=== PATIENT | female | born 1985 | race Caucasian/White ===

== ENCOUNTER → 2018-02-13 14:42 | Outpatient (CLI) | payer MEDICAID, SELFPAY | PROVIDERS: Visit Provider Obstetrics & Gynecology | DX: Z12.4 Encounter for screening for malignant neoplasm of cervix (principal) | CPT/HCPCS: 87624; 88175; G0145 ==

== ENCOUNTER → 2018-04-11 13:56 | Outpatient (CLI) | payer MEDICAID, SELFPAY ==
[2016-03-15 10:26] VITALS: BMI 33.5
[2018-04-11 18:11] LABS: Chlamydia Trachomatis by PCR Negative (Negative); Neisserai gonorrhoeae by PCR Negative (Negative); Probe Check PASS; Sample Adequacy Control PASS; Specimen Processing Control PASS
== END ==
PROVIDERS: Visit Provider Obstetrics & Gynecology
DX: Z11.3 Encounter for screening for infections with a predominantly sexual mode of transmission (principal); Z32.01 Encounter for pregnancy test, result positive
CPT/HCPCS: 87491; 87591

== ENCOUNTER → 2018-04-24 15:54 | Outpatient (CLI) | payer MEDICAID, SELFPAY ==
[2018-04-24 17:51] LABS: Absolute Lymphocyte Count 1.89 X10^3/ul (0.83-4.51); Absolute Neutrophil Count 8.3 X10^3/uL (2.0-7.7); Basophil# 0.02 X10^3/uL; Basophil% 0.2 % (0-1); Eosinophil# 0.07 X10^3/uL; Eosinophils% 0.6 % (0-5); Hematocrit 39.1 % (37-47); Hemoglobin 13.3 g/dl (12.0-15.0); Lymphocyte # 1.89 X10^3/ul (4.0); Lymphocyte % 17.2 % (19-41); Mean Corpuscular Hgb 30.6 pg (27.0-32.0); Mean Corpuscular Volume 90.1 fL (81-99); Mean Platelet Vol. 12.1 fl (6.2-12.0); Monocyte# 0.69 X10^3/uL; Monocyte% 6.3 % (0-10); Neutrophil % 75.4 % (47-70); Platelet Count 299 K/mm3 (150-450); RBC Distribution Width CV 13.2 % (11.6-14.6); RBC Distribution Width SD 43.2 fl (35.1-43.9); Red Blood Count 4.34 M/mm3 (4.2-5.4)
[2018-04-24 17:53] LABS: POSITIVE COUNT NO; POSITIVE DIFFERENTIAL NO; POSITIVE MORPHOLOGY NO
[2018-04-24 17:59] LABS: Color, Urine Yellow (Yellow); Glucose, Dipstick Normal (Normal); Ketone-Dipstick Negative (Negative); Leukocyte Esterase-Dipstick Negative /ul (Negative); Nitrite-Dipstick Negative (Negative); Occult Blood-Urine 25 /ul (Negative); Protein-Dipstick Negative (Negative); Urine Bilirubin Dipstick Negative (Negative); Urine Clarity Clear (Clear); Urine Urobilinogen Normal (Normal)
[2018-04-24 18:10] LABS: Amphetamine Urine VISTA NEGATIVE (<1000 ng/mL); Barbiturate Urine VISTA NEGATIVE (< 200 ng/mL); Benzodiazepine Urine VISTA NEGATIVE (< 200 ng/mL); Cocaine Urine VISTA NEGATIVE (< 300 ng/mL); Ecstacy Urine VISTA NEGATIVE (< 500 ng/mL); Methadone Urine VISTA NEGATIVE (< 300 ng/mL); PCP Urine VISTA NEGATIVE (< 25 ng/mL); THC Urine VISTA NEGATIVE (< 50 ng/mL); Vista UDS pH Range 7
[2018-04-24 18:51] LABS: HIV - WCH Non-Reactive (Nonreactive); Rubella IgG 52.2 IU/mL; Vitamin D,25 Hydroxy 29.9 ng/mL (29.95-100.01)
[2018-04-24 19:04] LABS: COTININE Drug Screen Negative (<200 ng/mL)
[2018-04-26 13:24] LABS: HEPATITIS B SURFACE AG Negative (Negative); Hep C Antibodies <0.1 s/co ratio (0.0-0.9)
[2018-04-27 02:33] LABS: Prenatal RPR NONREACTIVE (NONREACTIVE)
== END ==
PROVIDERS: Visit Provider Obstetrics & Gynecology
DX: Z34.81 Encounter for supervision of other normal pregnancy, first trimester (principal)
CPT/HCPCS: 36415; 80307; 81002; 82306; 84443; 85025; 86703; 86762; 86803; 87340

== ENCOUNTER → 2018-09-10 11:25 | Outpatient (CLI) | payer MEDICAID, SELFPAY ==
[2018-09-10 13:47] LABS: Hematocrit 35.3 % (37-47); Hemoglobin 11.8 g/dl (12.0-15.0); Mean Corp Hgb Conc 33.4 g/gl (32-36); Mean Corpuscular Hgb 30.6 pg (27.0-32.0); Mean Corpuscular Volume 91.5 fL (81-99); Mean Platelet Vol. 10.9 fl (6.2-12.0); Platelet Count 209 K/mm3 (150-450); RBC Distribution Width CV 13.2 % (11.6-14.6); RBC Distribution Width SD 43.5 fl (35.1-43.9); Red Blood Count 3.86 M/mm3 (4.2-5.4); Scan Indicated on CBC? Y/N NO; White Blood Count 8.9 K/mm3 (4.4-11.0)
[2018-09-10 13:50] LABS: Glucose Challenge Gest 1H 50g 90 mg/dL (70-140)
== END ==
PROVIDERS: Visit Provider Obstetrics & Gynecology
DX: Z34.83 Encounter for supervision of other normal pregnancy, third trimester (principal)
CPT/HCPCS: 36415; 82950; 85027

== ENCOUNTER → 2018-10-03 11:54 | Outpatient (CLI) | payer MEDICAID, SELFPAY ==
[2016-03-15 10:26] VITALS: BMI 33.5
[2018-10-03 12:24] LABS: ROM Internal Control Test YES-OK TO RESULT pt. (Internal QC)
[2018-10-03 12:27] LABS: ROM Patient Test Negative (Negative)
== END ==
PROVIDERS: Visit Provider Obstetrics & Gynecology
DX: Z34.83 Encounter for supervision of other normal pregnancy, third trimester (principal)
CPT/HCPCS: 84112

== ENCOUNTER → 2018-10-23 16:16 | Outpatient (CLI) | payer MEDICAID, SELFPAY ==
[2016-03-15 10:26] VITALS: BMI 33.5
== END ==
PROVIDERS: Visit Provider Obstetrics & Gynecology
DX: Z36.85 Encounter for antenatal screening for Streptococcus B (principal)
CPT/HCPCS: 87077; 87081; 87186

== ENCOUNTER 2018-11-08 12:00 | Inpatient (IN) | payer MEDICAID, SELFPAY ==
[2016-03-15 10:26] VITALS: BMI 33.5
[2018-11-08] VITALS (12 sets, daily range): BP systolic 104–127; BP diastolic 59–80; PULSE 86–109; RESP 16; TEMP 36–36.6; O2SAT 97–100; BMI 30.7
--- NOTE | 2018-11-08 12:13 | PCM.OPRPT ---
Report of Operation Date of Procedure: 11/08/18 Pre-Operative Diagnosis: labor 36w5d ega with previous section, requests permanent sterilization Post-Operative Diagnosis: Same Surgery/Procedure Performed:: Repeat Low Transverse Section, Bilateral Salpingectomy Description of Surgical Findings:: Live male in vertex presentation. Apgars 8/9. Normal appearing uterus, ovaries, and fallopian tubes. Type of Anesthesia:: Spinal Special Medications: none Specimen's removed: none Drains: ogden Description of Procedure: Imani was found to be in labor at 36w5d EGA. Indications for repeat section discussed and risks, benefits, and possible postoperative expectations reviewed. She also reconfirms her desire for permanent sterilization. She was taken to the OR with IV running. She was then given two grams of Ancef for surgical prophylaxis. Spinal anesthesia was then induced without complication. She was then prepped and draped in the supine position with a leftward tilt. A ogden catheter was placed. Once anesthesia was deemed adequate a Pfannesteil skin incision was made with the scalpel and then the previous scar was removed. The underlying subcutaneous tissue was dissected down to the level of the fascia with sharp and blunt dissection. The fascia was then incised laterally in the midline. This defect was extended bilaterally with the Breen scissors. The upper portion of the fascial defect was then grasped with two Beverly clamps, elevated and the underlying rectus muscles were dissected off with sharp and blunt dissection. In a similar fashion the rectus muscles were dissected off the lower portion of the fascial defect. The rectus muscles were then in the midline, the peritoneum identified and entered sharply. The peritoneal defect was enlarged with blunt dissection. A bladder blade was placed and a bladder flap created. The bladder blade was replaced . A transverse incision was then made in the lower uterine segment and once the cavity was entered the defect was enlarged using blunt lateral and superior traction. The membranes were ruptured and the baby's head was delivered atraumatically followed by the body. The mouth was suctioned with a bulb suction. Delayed cord clamping was employed. The cord was then clamped and cut. The baby was then handed off to the waiting nurse for evaluation. The placenta was delivered manually, the uterus exteriorized, and cleared of all clot and membranes. The uterine defect was then repaired in two layers with #1 Vicryl suture. Attention was then directed to the fallopian tubes. The right fallopian tube was grasped with a Margarita clamp elevated and the mesosalpinx clamped with two Caitlin clamps. The mesosalpinx was then cut from the fimbriated end to the cornua of the uterus and then amputated and ligated at the cornua. The mesosalpinx was clamped and ligated. In a similar fashion the left fallopian tube was removed. The cul de sac and gutters were cleared of all clot and fluid. The uterus was returned to the abdomen. The uterine incision and fallopian tube pedicles were inspected and found to be hemostatic. The peritoneum was closed with a running stitch of 2-0 Vicryl. The rectus muscles were reapproximated with interrupted sutures of 0-Vicryl suture. The fascia was closed with a running stitch of #1 Vicryl. The subcutaneous tissue was closed with 2-0 Vicryl. The skin was close with a subcuticular stitch of 4-0 Monocryl. Instrument, needle, lap, and sponge counts were correct. She was taken to the recovery room in stable condition. Grafts/Implants Used: none - Complications none - Admit VTE Documentation VTE Present on Admission: No VTE Mechan Device Prophylaxis: SCD's VTE Pharm Prophylaxis ordered?: No Delivery Classification: JHONNY Final BRETT: 11/30/18 Final BRETT Source: US <20 weeks Gestational age: 36 Weeks and 6 Days Indications for : Repeat Elective , - - Previous section x 3 requests sterilization Description of Procedure: see op note Amniotic Membrane Rupture Type: Artificial Amniotic Fluid Description: Clear Placenta Disposition: [facility] Specimen(s) sent to pathology: none Drain: Ogden to straight drain Fluids Replaced: 1000cc LR Cord Entanglement: None Nuchal Cord Compression: Without compression Cord Vessel Description: 3 Vessels Esitmated Blood Loss (ml): 400cc Infant Gender: Male (1 minute): 8 (5 minute): 9 Delayed cord clamping: Yes Pre-op Antibiotic Given: Ancef 2 grams IV x1 Pt instructed on risks of surgery: Bleeding, Infection, Permanency Complications: None - Admit VTE Documentation VTE Present on Admission: No VTE Mechan Device Prophylaxis: SCD's VTE Pharm Prophylaxis ordered?: No
[2018-11-08] MEDS: Lactated Ringers 1,000 ML 50 ML IV ×2 (13:05→15:53)
[2018-11-08 13:33] LABS: Absolute Lymphocyte Count 1.36 X10^3/ul (0.83-4.51); Absolute Neutrophil Count 6.5 X10^3/uL (2.0-7.7); Basophil# 0.02 X10^3/uL; Basophil% 0.2 % (0-1); Eosinophils% 1.1 % (0-5); Hematocrit 36.2 % (37-47); Hemoglobin 12.3 g/dl (12.0-15.0); Lymphocyte # 1.36 X10^3/ul (4.0); Lymphocyte % 15.5 % (19-41); Mean Corpuscular Hgb 30.3 pg (27.0-32.0); Mean Corpuscular Volume 89.2 fL (81-99); Mean Platelet Vol. 11.3 fl (6.2-12.0); Monocyte# 0.74 X10^3/uL; Monocyte% 8.4 % (0-10); Neutrophil # 6.49 X10^3/uL (2.7-7.7); Neutrophil % 74.1 % (47-70); Platelet Count 203 K/mm3 (150-450); RBC Distribution Width CV 13.5 % (11.6-14.6); RBC Distribution Width SD 44.1 fl (35.1-43.9); Red Blood Count 4.06 M/mm3 (4.2-5.4); White Blood Count 8.8 K/mm3 (4.4-11.0)
[2018-11-08 13:36] LABS: POSITIVE COUNT NO; POSITIVE DIFFERENTIAL NO; POSITIVE MORPHOLOGY NO
[2018-11-08 13:48] LABS: International Normalized Ratio 1.1; Partial Thromboplast Time 28.5 Seconds (24.1-36.2); Prothrombin Time (Protime)PT. 13.6 SECONDS (11.7-14.9)
[2018-11-08] MEDS: CHLORHEXIDINE GLUC 2% CLOTH 1 EACH TOWELETTE TOPICAL (15:00)
[2018-11-08] MEDS: Sodium Citrate/Citric Acid 30 ML UDC PO (15:53)
[2018-11-08] MEDS: Cefazolin 2 GM in 0.9% Normal Saline 100 ML IV (15:56)
--- NOTE | 2018-11-08 16:31 | FALS_PTH ---
PATIENT: JACQUELINE MAJOR LOC: [facility] U#:[id number] AGE/SX: 33/F ROOM: WP004 RE11/08/[address]: Dr. Waldo Covarrubias MD : 1985 BED: 1 DIS: 11/10/2018 SPEC #: [id number] RECD: 11/08/18 19:01 STATUS: GLADYS REMichael #: [id number] STACY: 11/08/18 16:[address]: Waldo Covarrubias DEPT: SURGICAL PATHOLOGY RECD BY: Wesly Beth ENTERED: 11/09/18 08:02 SP TYPE: FALL TUBES OTHR DR: No Primary Care Phys Tissues: Fallopian tube Procedures: Surgery Specimen Level II HEADER OPERATION: Tubal ligation PRE-OP DIAGNOSIS: Desires sterilization TISSUE SUBMITTED: Fallopian tubes, suture in left MICROSCOPIC DIAGNOSIS Fallopian tubes: Bilateral fallopian tubes with intact lumen identified. FA:christie 11/12/18 MICROSCOPIC DESCRIPTION Slides are reviewed. GROSS DESCRIPTION Received in fixative is one container labeled with the patient's name and designated fallopian tubes, suture in left. The specimen consists of two segments of fallopian tubes, one with suture thread. The fallopian tube containing suture thread measures 5 cm in length x 0.6 cm in diameter. The serosal surface is carter-pink and smooth. A fimbriated end is present. Cross-sections through the fallopian tube demonstrate a pinpoint lumen. The contralateral fallopian tube measures 5.2 cm in length x 0.7 cm in diameter. The serosal surface is carter-pink and smooth. A fimbriated end is present. Cross-sectioning demonstrates a pinpoint lumen. [employer] sections are submitted as follows: 1 - left fallopian tube, 2 - right fallopian tube. / CE:christie 11/09/18 TC:4 [facility]: [id number] x2
[2018-11-08] MEDS: Oxytocin 30 units/NS 500 ml 30 UNITS/500 ML IV.SOLN 167 UNITS IV (16:33)
[2018-11-08] MEDS: Ketorolac 30 MG/ML Syringe IV ×2 (17:02→22:58)
[2018-11-08] MEDS: Nalbuphine 10 MG/ML Ampul 5 MG IV (18:36)
[2018-11-08] MEDS: Ondansetron 4 MG/2 ML Vial IV (22:53)
[2018-11-09] VITALS (13 sets, daily range): BP systolic 102–111; BP diastolic 52–76; PULSE 72–90; RESP 16–20; TEMP 36.2–36.6; O2SAT 97–100
[2018-11-09] MEDS: Lactated Ringers 1,000 ML 100 ML IV (00:37)
[2018-11-09] MEDS: Cefazolin 1 GM/50 ML BAG IV ×2 (00:38→09:12)
[2018-11-09] MEDS: Ondansetron 4 MG/2 ML Vial IV (02:57)
[2018-11-09] MEDS: Ketorolac 15 MG/ML Vial 30 MG IV ×4 (05:11→23:03)
[2018-11-09 05:40] LABS: Hematocrit 28.1 % (37-47); Hemoglobin 9.7 g/dl (12.0-15.0); Mean Corp Hgb Conc 34.5 g/gl (32-36); Mean Corpuscular Hgb 30.7 pg (27.0-32.0); Mean Corpuscular Volume 88.9 fL (81-99); Mean Platelet Vol. 10.9 fl (6.2-12.0); Platelet Count 186 K/mm3 (150-450); RBC Distribution Width CV 13.4 % (11.6-14.6); Red Blood Count 3.16 M/mm3 (4.2-5.4); White Blood Count 11.5 K/mm3 (4.4-11.0)
[2018-11-09 05:51] LABS: Scan Indicated on CBC? Y/N NO
--- NOTE | 2018-11-09 08:19 | PCM.PN.OB ---
Subjective: Pain reasonably controlled this morning. Breast feeding, tolerating PO, Bleeding light Objective: Afeb VSS Hgb appropriate - Physical Exam General: Alert, Oriented x3, Cooperative, No apparent distress Lungs: Clear to auscultation, Normal air movement Cardiovascular: Regular rate, Regular Rhythm Abdomen: Soft, Non-Distended, - - Fundus firm Incision dressing dry Extremities: No edema Skin: No rashes Neurological: Neuro grossly intact Psych/Mental Status: Normal Affect Comment: Lochia light Vital Signs Temp Pulse Resp BP Pulse Ox 97.3 F L 83 16 103/53 L 98 11/09/18 07:10 11/09/18 07:10 11/09/18 07:10 11/09/18 07:10 11/09/18 07:10 Oxygen Delivery Method Room Air Weight: 176 lb 2.389 oz Body Mass Index (BMI) 30.7 Intake and Output for Last 24 Hours 11/07/18 11/08/18 11/09/18 23:59 23:59 23:59 Intake Total 1786 / 1786 1043 / 1043 Output Total 400 / 400 700 / 700 Balance 1386 / 1386 343 / 343 Laboratory Tests Past 24 Hrs 11/08/18 11/08/18 11/08/18 13:05 13:05 13:05 WBC 8.8 RBC 4.06 L Hgb 12.3 Hct 36.2 L MCV 89.2 MCH 30.3 MCHC 34.0 RDW 13.5 RDW Differential 44.1 H Plt Count 203 MPV 11.3 Immature Gran % (Auto) 0.700 Neut % (Auto) 74.1 H Lymph % (Auto) 15.5 L [place] % (Auto) 8.4 Eos % (Auto) 1.1 Baso % (Auto) 0.2 Absolute Neuts (auto) 6.5 Absolute Lymphs (auto) 1.36 Total Counted Not Reportable PT 13.6 INR 1.1 APTT 28.5 Blood Type A POSITIVE Antibody Screen NEGATIVE 11/09/18 05:20 WBC 11.5 H RBC 3.16 L Hgb 9.7 L Hct 28.1 L MCV 88.9 MCH 30.7 MCHC 34.5 RDW 13.4 RDW Differential 44.0 H Plt Count 186 MPV 10.9 Immature Gran % (Auto) Neut % (Auto) Lymph % (Auto) [place] % (Auto) Eos % (Auto) Baso % (Auto) Absolute Neuts (auto) Absolute Lymphs (auto) Total Counted PT INR APTT Blood Type Antibody Screen Medical Necessity - Tobacco Use Smoking Status: Never smoker Assessment/Plan All Active Problems Previous delivery affecting , delivered (Acute) premature rupture of membranes (PPROM) delivered, current hospitalization (Acute) Doing well on POD #1. Continue routine PO care. D/C alin this afternoon
[2018-11-09] MEDS: Ferrous Gluconate 324 MG Tablet PO ×2 (10:47→21:32)
[2018-11-09] MEDS: Prenatal Vits Tablet 1 TABLET PO (11:56)
[2018-11-09] MEDS: 0.9% Saline Lock 10 ML Syringe IV ×2 (11:56→17:29)
--- NOTE | 2018-11-09 15:30 | NURSING ---
at 1500, urinary catheter removed
[2018-11-09] MEDS: oxyCODONE 5 MG Tablet PO (21:31)
[2018-11-10 02:30] VITALS: BP 101/54; PULSE 71; RESP 18; TEMP 36.1; O2SAT 95
[2018-11-10] MEDS: 0.9% Saline Lock 10 ML Syringe IV ×2 (05:34→11:01)
[2018-11-10] MEDS: Ketorolac 15 MG/ML Vial 30 MG IV ×2 (05:34→11:01)
[2018-11-10] MEDS: oxyCODONE 5 MG Tablet PO (05:43)
[2018-11-10 08:00] VITALS: BP 112/71; PULSE 79; RESP 17; TEMP 36.7; O2SAT 99
--- NOTE | 2018-11-10 09:20 | PN.OBGYN_ITS ---
Subjective: Feels well. Pain reasonably controlled. Bleeding light. Objective: Afeb VSS - Physical Exam General: Alert, Oriented x3, Cooperative, No apparent distress Lungs: Clear to auscultation, Normal air movement Cardiovascular: Regular rate, Regular Rhythm Abdomen: Soft, Non Tender, Non-Distended, - - Fundus firm, incision dressing dry Extremities: No edema Skin: No rashes Neurological: Neuro grossly intact Psych/Mental Status: Normal Affect Comment: Lochia appropriate Vital Signs Temp Pulse Resp BP Pulse Ox 96.9 F L 71 18 101/54 L 95 11/10/18 02:30 11/10/18 02:30 11/10/18 02:30 11/10/18 02:30 11/10/18 02:30 Oxygen Delivery Method Room Air Weight: 176 lb 2.389 oz Body Mass Index (BMI) 30.7 Intake and Output for Last 24 Hours //11/09/18 11/10/18 23:59 23:59 23:59 Intake Total 1786 / 1786 2453 / 2453 Output Total 400 / 400 1500 / 1500 600 / 600 Balance 1386 / 1386 953 / 953 -600 / -600 Medical Necessity - Tobacco Use Smoking Status: Never smoker Assessment/Plan All Active Problems Previous delivery affecting , delivered (Acute) premature rupture of membranes (PPROM) delivered, current hos pitalization (Acute) Doing well on POD#2. Cleared for discharge home today. Home going instructions and warnings given.
--- NOTE | 2018-11-10 09:21 | DS.PCM_ITS ---
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 Repeat LTCS and bilateral salpingectomy performed without complication with delivery of a live male . Post operative course was unremarkable.] - Physical Exam Vital Signs Temp Pulse Resp BP Pulse Ox 96.9 F L 71 18 101/54 L 95 11/10/18 02:30 11/10/18 02:30 11/10/18 02:30 11/10/18 02:30 11/10/18 02:30 Oxygen Delivery Method Room Air Weight: 176 lb 2.389 oz Body Mass Index (BMI) 30.7 Intake and Output for Last 24 Hours 11/08/18 11/09/18 11/10/18 23:59 23:59 23:59 Intake Total 1786 / 1786 2453 / 2453 Output Total 400 / 400 1500 / 1500 600 / 600 Balance 1386 / 1386 953 / 953 -600 / -600 Discharge Diet: No Restrictions Discharge Activity: Return to Normal Activity, May not drive while taking narcotic pain medications., May Shower Return to work on:: 12/24/18 May shower in (days): 0 May resume sexual activity in: 4 weeks Call your doctor if your incision/area has: Continuous Slow Oozing, Sudden Increased Bleeding, Increased Pain/ Swelling, Increased Redness, Foul Smelling Discharge, Swelling at the incision site Call your doctor if you observe: Fever of 101 or Higher, Inability to urinate, Inability to have a bowel movement, Using more than one pad per hour, Shortness of breath, Chest pain, Calf discomfort, Uncontrolled pain Remove Dressing in (days):: 4 Cleanse incision/area with: Soap & Water Home Medications: Medications to take at Discharge No122/Iron/Folic Acid [ Multi Tablet] 1 each PO DAILY 01/15/15 Ferrous Gluconate 324 mg PO BID 11/08/18 cycloBENZAPRine HCl [Flexeril] 10 mg PO QHS PRN PRN 11/08/18 Primary Care Physician: Care Physician,No Primary [Primary Care Provider] - Please Follow Up With: Waldo Covarrubias MD When: one week Disposition: Home Minutes spent on discharge:: 15 Patient Condition:: Good Medical Necessity - Tobacco Use Smoking Status: Never smoker Meaningful Use Info Meaningful Use Diagnoses (Choose all that apply): None applicable
--- NOTE | 2018-11-10 09:29 | DCINST_ITS ---
Discharge Diet: No Restrictions Discharge Activity: Return to Normal Activity, May not drive while taking narcotic pain medications., May Shower Return to work on:: 12/24/18 May shower in (days): 0 May resume sexual activity in: 4 weeks Call your doctor if your incision/area has: Continuous Slow Oozing, Sudden Increased Bleeding, Increased Pain/ Swelling, Increased Redness, Foul Smelling Discharge, Swelling at the incision site Call your doctor if you observe: Fever of 101 or Higher, Inability to urinate, Inability to have a bowel movement, Using more than one pad per hour, Shortness of breath, Chest pain, Calf discomfort, Uncontrolled pain Remove Dressing in (days):: 4 Cleanse incision/area with: Soap & Water Additional Instructions: If you experience any of the following, contact your healthcare provider. * Bleeding that soaks a pad every hour for 2 hours * Fever 100.4 or higher * Unrelieved incision or abdominal pain * Swelling, redness, discharge or bleeding from your incision or episiotomy site * Your incision begins to separate * Problems urinating (including inability to urinate or burning while urinating). * Visual changes * Severe headache * Flu-like symptoms * Pain or redness in one of both of your breasts * Pain, warmth, tenderness or swelling in your legs, especially the calf area * Frequent nausea and vomiting * Symptoms of depression or anxiety If you experience any of the following, call 911 or go to the nearest Emergency Room. * Chest pain * Problems breathing * Seizure activity * Partial or complete paralysis of a body part, slurred speech, weakness or drooping of the face, or a sudden inability to walk or hold your balance Allergies/Adverse Reactions: Allergies Sulfa (Sulfonamide Antibiotics) Allergy (Verified 02/21/16 19:42) Rash Medications to take at Discharge No122/Iron/Folic Acid [ Multi Tablet] 1 each PO DAILY 01/15/15 Ferrous Gluconate 324 mg PO BID 11/08/18 cycloBENZAPRine HCl [Flexeril] 10 mg PO QHS PRN PRN 11/08/18 Ibuprofen [Motrin] 600 mg PO Q6H PRN PRN #30 tab 11/10/18 Oxycodone [Oxyir] 5 - 10 mg PO Q4H PRN PRN 7 Days #30 tab 11/10/18 The following prescriptions were given: Ibuprofen [Motrin] 600 mg PO Q6H PRN PRN #30 tab PRN Reason: pain or cramping Prescription Printed Oxycodone [Oxyir] 5 - 10 mg PO Q4H PRN PRN 7 Days #30 tab PRN Reason: Mod-Severe Pain (4-02/28) Prescription Printed Follow-Up: Call to make an appointment with your doctor for an incision check in 1-2 weeks. You will also need a 6 week post- follow up appointment. Test results from this visit will be discussed in further detail at your follow- up appointment, if applicable. Please Follow Up With: Waldo Covarrubias MD When: one week Primary Care Physician: Care Physician,No Primary [Primary Care Provider] - Proposed Discharge Date: 11/10/18
[2018-11-10] MEDS: Ferrous Gluconate 324 MG Tablet PO (10:28)
[2018-11-10] MEDS: Prenatal Vits Tablet 1 TABLET PO (10:28)
[2018-11-10 11:40] VITALS: BP 120/70; PULSE 78; RESP 17; TEMP 37.1; O2SAT 99
[2018-11-13 15:14] LABS: Pathology Specimen OB SEE PATHOLOGY REPORT
--- NOTE | 2018-11-14 16:57 | NURSING ---
Mother states on follow up phone call she didn't get a stool softner , she said they just gave her one the last time. She did not know to ask. She really like Geovanna, she started her in labor and really made an impression.
== END 2018-11-10 11:40 | disposition home or self-care (01) | DRG 540 ==
LOC: WPOUT 12:18
PROVIDERS: Admitting Provider Obstetrics & Gynecology; Referring Provider Obstetrics & Gynecology; Visit Provider Obstetrics & Gynecology
DX: O34.211 Maternal care for low transverse scar from previous cesarean delivery (principal); O60.14X0 Preterm labor third trimester with preterm delivery third trimester, not applicable or unspecified; O42.913 Preterm premature rupture of membranes, unspecified as to length of time between rupture and onset of labor, third trimester; O26.23 Pregnancy care for patient with recurrent pregnancy loss, third trimester; O99.824 Streptococcus B carrier state complicating childbirth; Z3A.36 36 weeks gestation of pregnancy; Z37.0 Single live birth; Z30.2 Encounter for sterilization; Z86.19 Personal history of other infectious and parasitic diseases
CPT/HCPCS: 59025; 59050; 85025; 85027; 85610; 85730; 86850; 86900; 88302; 99218; J7120; A4216; G0378; J2405